=== PATIENT | male | born 1930 | race American Indian/Alaskan Native ===

== ENCOUNTER 2016-11-01 03:05 | Emergency (ER) | payer MEDICARE ==
[2016-11-01 03:21] VITALS: BP 163/77
== END 2016-11-01 03:30 | disposition left against medical advice (07) ==
LOC: ED 03:05
DX: M79.604 Pain in right leg (principal); M79.605 Pain in left leg; I10 Essential (primary) hypertension; Z85.46 Personal history of malignant neoplasm of prostate; Z53.21 Procedure and treatment not carried out due to patient leaving prior to being seen by health care provider